=== PATIENT | female | born 1965 | race Caucasian/White ===

== ENCOUNTER 2021-05-05 11:12 | Emergency (ER) | payer BC, SELFPAY ==
[2021-05-05 11:13] VITALS: BP 178/91; PULSE 74; RESP 16; TEMP 36.6; BMI 26.2
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
[2021-05-05 11:47] VITALS: BP 160/85; PULSE 69
== END 2021-05-05 12:03 | disposition home or self-care (01) ==
PROVIDERS: Emergency Provider Emergency Medicine; PCP Internal Medicine
DX: S16.1XXA Strain of muscle, fascia and tendon at neck level, initial encounter (principal); V49.40XA Driver injured in collision with unspecified motor vehicles in traffic accident, initial encounter; Y93.89 Activity, other specified; Y92.9 Unspecified place or not applicable; Y99.9 Unspecified external cause status
CPT/HCPCS: 99282